=== PATIENT | female | born 1960 | race Caucasian/White ===

== ENCOUNTER 2019-10-25 13:10 | Emergency (ER) | payer OTHER ==
[~2019-10-25] VITALS: Ht 167.6 cm; Wt 77.3 kg
[2019-10-25] MEDS ORDERED: LIDOCAINE 5% TRANSDERMAL PATCH TD ONE (15:00)
[2019-10-25] MEDS ORDERED: IBUPROFEN 600 MG TABLET PO ONE (15:00)
[2019-10-25 16:26] VITALS: BP 135/86
== END 2019-10-25 16:29 | disposition home or self-care (01) ==
LOC: EMS 13:13
DX: S13.4XXA Sprain of ligaments of cervical spine, initial encounter (principal); R51 Headache; W07.XXXA Fall from chair, initial encounter; Y93.89 Activity, other specified; Y92.89 Other specified places as the place of occurrence of the external cause; Y99.0 Civilian activity done for income or pay
CPT/HCPCS: 70450; 72125